=== PATIENT | male | born 1995 | race Caucasian/White ===

== ENCOUNTER 2023-10-22 04:59 | Emergency (ER) | payer OTHER ==
[2023-10-22] MEDS ORDERED: Ketorolac 60 MG/2 ML SDV IM ONE (06:07)
== END 2023-10-22 07:22 | disposition home or self-care (01) ==
LOC: JD.ED 04:59
DX: S82.62XA Displaced fracture of lateral malleolus of left fibula, initial encounter for closed fracture (principal); F17.210 Nicotine dependence, cigarettes, uncomplicated; Z86.16 Personal history of COVID-19; Z90.49 Acquired absence of other specified parts of digestive tract; X50.0XXA Overexertion from strenuous movement or load, initial encounter
CPT/HCPCS: 73610; 96372; 99283; J1885; 99282